=== PATIENT | male | born 1955 | race Caucasian/White ===

== ENCOUNTER 2021-04-28 11:02 | Emergency (ER) | payer MEDICARE, BC ==
[2021-04-28] MEDS: Sodium Chloride 0.9% 10 ML Syringe FLUSH PRN (11:24)
[2021-04-28] MEDS: Alum Hydroxide/Mag Hydroxide 15 ML, Lidocaine 2% 15 ML PO ONE ×2 (11:36)
== END 2021-04-28 12:05 | disposition home or self-care (01) ==
LOC: FB.ED 11:02
DX: K21.9 Gastro-esophageal reflux disease without esophagitis (principal)
CPT/HCPCS: 80048; 84484; 85025; 93005; 93010; 99283; 99285-25; A9270-GY